=== PATIENT | male | born 1990 | race Caucasian/White ===

== ENCOUNTER 2016-05-21 17:52 | Emergency (ER) | payer OTHER | END 2016-05-21 22:10 | disposition short-term general hospital (02) | LOC: ER 17:52 | DX: F31.9 Bipolar disorder, unspecified (principal); F29 Unspecified psychosis not due to a substance or known physiological condition; F41.9 Anxiety disorder, unspecified; K74.60 Unspecified cirrhosis of liver; F17.210 Nicotine dependence, cigarettes, uncomplicated | CPT/HCPCS: 36415; 80307; G0480 ==

== ENCOUNTER 2016-05-27 01:57 | Emergency (ER) | payer OTHER | END 2016-05-27 03:03 | disposition home or self-care (01) | LOC: ER 01:57 | DX: F41.9 Anxiety disorder, unspecified (principal); F90.9 Attention-deficit hyperactivity disorder, unspecified type; F31.9 Bipolar disorder, unspecified; F17.210 Nicotine dependence, cigarettes, uncomplicated ==